=== PATIENT | male | born 1945 | race Caucasian/White ===

== ENCOUNTER → 2017-01-10 | Outpatient (CLI) | payer MEDICARE, BC ==
--- NOTE | 2017-01-10 18:48 | REP ---
PET/CT: History: Initial staging lung nodule seen on CT study [facility], December 20 2016. Report of this study describes a 3.1 x 2.3 x 1.3 cm right upper lobe consolidation, which was felt to have increased in size. Comparison: Comparison PET-CT study December 17, 2014 TECHNIQUE: 64 minutes following the intravenous injection of a 8.2 mCi dose of F-18 FDG, three-dimensional PET scintigraphy is acquired from the skull base to the proximal thighs. Triplanar noncontrast CT scanning is acquired through the same anatomic range for attenuation correction, and image registration with scan parameters optimized to minimize radiation exposure to the patient. PET scintigraphy and CT datasets were fused and displayed on a workstation with multiplanar and projection display capability. PET/CT Findings: The pleuroparenchymal opacity in the right base on recent CT study shows no hypermetabolic FDG accumulation. Maximum SUV value 1.9. This density appears unchanged when compared with the prior PET-CT imaging December 17, 2014. There is no abnormal hypermetabolic uptake within the chest. Calcific pleural plaquing is again noted unchanged. Vascular calcification is noted fairly extensively. In the abdomen and pelvis, normal FDG distribution to the liver, spleen, gastrointestinal and genitourinary tract is seen. No abnormal abdominal or pelvic hypermetabolic uptake is observed. Impression: Negative PET scintigraphy. Signed by Guilherme Rivera MD 01/10/2017 08:01 P
== END ==
LOC: M RAD 15:22
PROVIDERS: ATTEND Internal Medicine Pulmonary Disease
DX: R91.1 Solitary pulmonary nodule (principal)
CPT/HCPCS: 78815; A9552

== ENCOUNTER → 2017-07-31 | Outpatient (CLI) | payer MEDICARE, BC ==
--- NOTE | 2017-07-31 15:21 | REP ---
Bilateral carotid artery duplex ultrasound: Peak flow velocity analysis: RIGHT LEFT ICA. Peak flow velocity cm/sec 99 102 ICA Diastolic flow velocity cm/sec 20 27 ICA/CCA Ratio 0.95 0.88 ECA Peak flow velocity cm/sec 172 122 CCA Peak flow velocity cm/sec 105 116 There is moderate atheromatous plaque bilaterally extending from the common carotid arteries into the bulbs and internal carotid arteries and external carotid arteries bilaterally. Peak flow velocity in the right external carotid artery is elevated compatible with 50 - 69% stenosis. The peak flow velocities otherwise indicate less than 50% narrowing bilaterally. There is antegrade flow in the vertebral arteries bilaterally. Impression: There is no stenosis of the right on the left internal carotid arteries. Peak flow velocities indicate less than 50% narrowing bilaterally. There is 50 - 69% narrowing of the right external carotid artery. Signed by Obi Stallworth MD 07/31/2017 03:13 P
== END ==
LOC: M RAD 12:52
PROVIDERS: ATTEND Internal Medicine
DX: I65.29 Occlusion and stenosis of unspecified carotid artery (principal)

== ENCOUNTER → 2018-02-13 | Outpatient (CLI) | payer MEDICARE, BC ==
[2018-02-13 15:30] LABS: BASO # 0.2 10^3/uL (0.0-0.2); BASO % 1.8 % (0.0-1.0); EOS # 0.3 10^3/uL (0.0-0.50); EOS % 2.3 % (0.0-3.0); HEMATOCRIT 35.9 % (42.0-52.0); HEMOGLOBIN 12.1 g/dl (13.5-17.5); IMMATURE GRANULOCYTE % 0.4 % (0-3.0); LYMPH # 2.2 10^3/uL (1.5-4.5); LYMPH % 18.6 % (24.0-44.0); MEAN CORPUSCULAR HEMOGLOBIN 31.7 pg (27.0-33.0); MEAN CORPUSCULAR HGB CONC 33.7 g/dl (32.0-36.5); MONO # 1.3 10^3/uL (0.0-0.8); MONO % 11.2 % (0.0-5.0); NEUTROPHILS # 7.7 10^3/uL (1.8-7.7); NEUTROPHILS % 65.7 % (36.0-66.0); PLATELET COUNT, AUTOMATED 239 10^3/uL (150-450); RED BLOOD COUNT 3.82 10^6/uL (4.30-6.10); RED CELL DISTRIBUTION WIDTH 14.1 % (11.5-14.5); WHITE BLOOD COUNT 11.7 10^3/uL (4.0-10.0)
[2018-02-13 16:11] LABS: ANION GAP 7 MEQ/L (8-16); BLOOD UREA NITROGEN 16 MG/DL (7-18); CALCIUM LEVEL 8.9 MG/DL (8.8-10.2); CARBON DIOXIDE LEVEL 25 MEQ/L (21-32); CHLORIDE LEVEL 104 MEQ/L (98-107); CREATININE FOR GFR 1.06 MG/DL (0.70-1.30); GLOMERULAR FILTRATION RATE > 60.0 (>42); GLUCOSE, FASTING 83 MG/DL (70-100); POTASSIUM SERUM 4.4 MEQ/L (3.5-5.1); SODIUM LEVEL 136 MEQ/L (136-145)
== END ==
LOC: M LAB 14:59
DX: I70.213 Atherosclerosis of native arteries of extremities with intermittent claudication, bilateral legs (principal)
CPT/HCPCS: 80048

== ENCOUNTER → 2018-02-21 | Outpatient (CLI) | payer MEDICARE, BC ==
[~2018-02-21] MED LIST: HEPARIN 1,000 UNITS/ML 10ML VIAL (FOR RADIOLOGY& DIALYSIS ONLY) As Ordered; ISOVUE-300 61% 50ML VIAL (Q9967) As Ordered; LIDOCAINE 2% MDV 20 ML VIAL As Ordered; MIDAZOLAM INJ 2 MG/2 ML VIAL (J2250) As Ordered; fentaNYL 100 MCG/2 ML INJECTION (J3010) As Ordered
== END | disposition home or self-care (01) ==
LOC: M IRPRO 06:34
DX: I70.211 Atherosclerosis of native arteries of extremities with intermittent claudication, right leg (principal); M48.00 Spinal stenosis, site unspecified; F17.210 Nicotine dependence, cigarettes, uncomplicated; I95.81 Postprocedural hypotension
CPT/HCPCS: 36200

== ENCOUNTER 2018-03-29 07:27 | Inpatient (IN) | payer MEDICARE, BC ==
[2018-03-29] MEDS ORDERED: LIDOCAINE 1% MDV 20ML VIAL SQ (07:45)
[2018-03-29] MEDS: BUPIVACAINE HCL 0.5% 30 ML VIAL As Ordered (08:42)
[2018-03-29] MEDS: LIDOCAINE 1% SDV INJ 30 ML VIAL As Ordered (08:42)
[2018-03-29] MEDS: HEPARIN SOD (PORCINE) 5000 UNITS/ML VIAL As Ordered (08:43)
[2018-03-29] MEDS: CONRAY-60 60% 50ML VIAL (Q9961) As Ordered (09:01)
[2018-03-29] MEDS ORDERED: ALBUTEROL 90 MCG/ACT 8GM HFA INHALER INH (17:45)
[2018-03-30 06:30] LABS: BASO # 0.2 10^3/uL (0.0-0.2); BASO % 1.7 % (0.0-1.0); EOS # 0.5 10^3/uL (0.0-0.50); EOS % 5.1 % (0.0-3.0); HEMATOCRIT 36.8 % (42.0-52.0); HEMOGLOBIN 12.4 g/dl (13.5-17.5); IMMATURE GRANULOCYTE % 0.3 % (0-3.0); LYMPH # 1.8 10^3/uL (1.5-4.5); LYMPH % 18.5 % (24.0-44.0); MEAN CORPUSCULAR HEMOGLOBIN 31.5 pg (27.0-33.0); MEAN CORPUSCULAR HGB CONC 33.7 g/dl (32.0-36.5); MEAN CORPUSCULAR VOLUME 93.4 fl (80.0-96.0); MONO # 1.2 10^3/uL (0.0-0.8); MONO % 12.1 % (0.0-5.0); NEUTROPHILS # 6.2 10^3/uL (1.8-7.7); NEUTROPHILS % 62.3 % (36.0-66.0); PLATELET COUNT, AUTOMATED 236 10^3/uL (150-450); RED BLOOD COUNT 3.94 10^6/uL (4.30-6.10); RED CELL DISTRIBUTION WIDTH 13.9 % (11.5-14.5)
[2018-03-30 06:40] LABS: ANION GAP 6 MEQ/L (8-16); BLOOD UREA NITROGEN 8 MG/DL (7-18); CALCIUM LEVEL 9.2 MG/DL (8.8-10.2); CARBON DIOXIDE LEVEL 28 MEQ/L (21-32); CHLORIDE LEVEL 106 MEQ/L (98-107); CREATININE FOR GFR 0.94 MG/DL (0.70-1.30); GLOMERULAR FILTRATION RATE > 60.0 (>42); GLUCOSE, FASTING 100 MG/DL (70-100); SODIUM LEVEL 140 MEQ/L (136-145)
[2018-03-30] MEDS ORDERED: PROPOFOL 200 MG/20 ML VIAL As Ordered ×9 (07:57→10:30)
[2018-03-30] MEDS ORDERED: LIDOCAINE 2% INJ 100 MG/5 ML SDV (FOR ANES.) As Ordered (07:57)
[2018-03-30] MEDS ORDERED: fentaNYL 100 MCG/2 ML INJECTION (J3010) As Ordered (07:57)
[2018-03-30] MEDS ORDERED: MIDAZOLAM INJ 2 MG/2 ML VIAL (J2250) As Ordered (07:58)
[2018-03-30] MEDS: ISOVUE-300 61% 50ML VIAL (Q9967) As Ordered (08:19)
[2018-03-30] MEDS: ceFAZolin 2 GM/D5W 50 ML IV BAG (J0690 PER 500MG) As Ordered (08:43)
[2018-03-30] MEDS ORDERED: HEPARIN SOD (PORCINE) 5000 UNITS/ML VIAL As Ordered ×2 (08:49)
[2018-03-30] MEDS ORDERED: ePHEDrine SULFATE 25 MG/5 ML(5MG/ML) SYRINGE As Ordered (09:09)
[2018-03-30] MEDS: HEPARIN SOD (PORCINE) 5000 UNITS/ML VIAL As Ordered ×2 (10:01→10:35)
[2018-03-30] MEDS: THROMBIN SOLN 20,000 UNITS KIT As Ordered (10:22)
[2018-03-30] MEDS: BUPIVACAINE HCL 0.5% 30 ML VIAL As Ordered (11:30)
[2018-03-30] MEDS: LIDOCAINE 1% SDV INJ 30 ML VIAL As Ordered (11:30)
[2018-03-30] MEDS ORDERED: PERCOCET 5MG/325MG TAB PO (12:15)
[2018-03-30] MEDS ORDERED: ONDANSETRON 4MG/2ML VIAL (J2405) IV (12:15)
[2018-03-30] MEDS ORDERED: fentaNYL 100 MCG/2 ML INJECTION (J3010) IV (12:15)
[2018-03-30 12:45] LABS: HEMATOCRIT 33.4 % (42.0-52.0); MEAN CORPUSCULAR HEMOGLOBIN 31.3 pg (27.0-33.0); MEAN CORPUSCULAR HGB CONC 32.9 g/dl (32.0-36.5); MEAN CORPUSCULAR VOLUME 95.2 fl (80.0-96.0); PLATELET COUNT, AUTOMATED 219 10^3/uL (150-450); RED BLOOD COUNT 3.51 10^6/uL (4.30-6.10); WHITE BLOOD COUNT 14.5 10^3/uL (4.0-10.0)
[2018-03-30] MEDS: LR 1,000 ML IV ×2 (12:52)
[2018-03-30 13:05] LABS: ANION GAP 2 MEQ/L (8-16); BLOOD UREA NITROGEN 8 MG/DL (7-18); CALCIUM LEVEL 8.7 MG/DL (8.8-10.2); CARBON DIOXIDE LEVEL 29 MEQ/L (21-32); CHLORIDE LEVEL 106 MEQ/L (98-107); CREATININE FOR GFR 0.95 MG/DL (0.70-1.30); GLOMERULAR FILTRATION RATE > 60.0 (>42); GLUCOSE, FASTING 112 MG/DL (70-100); POTASSIUM SERUM 4.3 MEQ/L (3.5-5.1); SODIUM LEVEL 137 MEQ/L (136-145)
[2018-03-30] MEDS: ATORVASTATIN 20 MG TAB PO (13:36)
[2018-03-30] MEDS: NORCO, ANEXSIA 5/325MG TABLET (HYDROcodone/ACETAMINOPHEN) PO ×2 (17:46→23:54)
[2018-03-31 06:20] LABS: HEMATOCRIT 31.9 % (42.0-52.0); HEMOGLOBIN 10.6 g/dl (13.5-17.5); MEAN CORPUSCULAR HEMOGLOBIN 31.7 pg (27.0-33.0); MEAN CORPUSCULAR HGB CONC 33.2 g/dl (32.0-36.5); MEAN CORPUSCULAR VOLUME 95.5 fl (80.0-96.0); PLATELET COUNT, AUTOMATED 201 10^3/uL (150-450); RED BLOOD COUNT 3.34 10^6/uL (4.30-6.10); WHITE BLOOD COUNT 16.2 10^3/uL (4.0-10.0)
[2018-03-31 06:33] LABS: ANION GAP 6 MEQ/L (8-16); BLOOD UREA NITROGEN 9 MG/DL (7-18); CALCIUM LEVEL 8.7 MG/DL (8.8-10.2); CARBON DIOXIDE LEVEL 28 MEQ/L (21-32); CHLORIDE LEVEL 102 MEQ/L (98-107); CREATININE FOR GFR 1.06 MG/DL (0.70-1.30); GLOMERULAR FILTRATION RATE > 60.0 (>42); GLUCOSE, FASTING 112 MG/DL (70-100); SODIUM LEVEL 136 MEQ/L (136-145)
[2018-03-31] MEDS: ATORVASTATIN 20 MG TAB PO (08:00)
[2018-03-31] MEDS: NORCO, ANEXSIA 5/325MG TABLET (HYDROcodone/ACETAMINOPHEN) PO (19:40)
== END 2018-03-31 20:19 | disposition home or self-care (01) | DRG 271 ==
LOC: M OR 07:27 → M MSPAV 18:53
PROC: 04CH0ZZ Extirpation of Matter from Right External Iliac Artery, Open Approach (ICD-10-PCS; principal; 2018-03-30 08:18)
PROC: 04CK0ZZ Extirpation of Matter from Right Femoral Artery, Open Approach (ICD-10-PCS; 2018-03-30 08:18)
PROC: 04UK0JZ Supplement Right Femoral Artery with Synthetic Substitute, Open Approach (ICD-10-PCS; 2018-03-30 08:18)
DX: I70.213 Atherosclerosis of native arteries of extremities with intermittent claudication, bilateral legs (principal); I70.92 Chronic total occlusion of artery of the extremities; F17.210 Nicotine dependence, cigarettes, uncomplicated; I70.0 Atherosclerosis of aorta; I10 Essential (primary) hypertension; E78.00 Pure hypercholesterolemia, unspecified; J98.4 Other disorders of lung; Z79.899 Other long term (current) drug therapy

== ENCOUNTER → 2018-05-06 | Outpatient (CLI) | payer MEDICARE, BC ==
[~2018-05-06] MED LIST changes: -LIDOCAINE 2% MDV 20 ML VIAL As Ordered
== END | disposition home or self-care (01) ==
LOC: M IRPRO 07:46
DX: I70.213 Atherosclerosis of native arteries of extremities with intermittent claudication, bilateral legs (principal); I70.0 Atherosclerosis of aorta; Z72.0 Tobacco use
CPT/HCPCS: 37221

== ENCOUNTER → 2018-07-30 | Outpatient (CLI) | payer MEDICARE, BC | LOC: M RAD 11:09 | DX: I73.9 Peripheral vascular disease, unspecified (principal); Z95.828 Presence of other vascular implants and grafts | CPT/HCPCS: 93925 ==

== ENCOUNTER → 2019-01-30 | Outpatient (CLI) | payer MEDICARE, BC ==
[~2019-01-30] MED LIST changes: +ATOR40TA75 PO; +BREO1INH INH; -HEPARIN 1,000 UNITS/ML 10ML VIAL (FOR RADIOLOGY& DIALYSIS ONLY) As Ordered; +HYDR-3715 PO; +IRBE300T12 PO; -ISOVUE-300 61% 50ML VIAL (Q9967) As Ordered; -MIDAZOLAM INJ 2 MG/2 ML VIAL (J2250) As Ordered; +VENTAER IN; -fentaNYL 100 MCG/2 ML INJECTION (J3010) As Ordered
--- NOTE | 2019-01-30 13:50 | REP ---
Right lower extremity arterial Doppler ultrasound: The brachial flow velocity is 164 centimeters per second. The dorsalis pedis flow velocity is 124 cm/sec. The [employer] flow velocity is 138 cm/sec The BRET is 0.8. Peak Systolic Phasicity Velocity INTERMEDIATE FRAME TENDER 167.1 biphasic Profunda 17.6 monophasic SFA prox 153.5 biphasic SFA mid 130.4 biphasic SFA dist 175.3 biphasic Pop 59.7 biphasic RENATO prox 87.0 biphasic Tib/P tr 45.6 monophasic [employer] pr 46.7 monophasic [employer] dst 30.1 biphasic RENATO dst 26.4 monophasic There are bilateral iliac stents. The stents are patent with biphasic flow. There is moderate/severe plaque from the C F A to the feet bilaterally. Multiple areas of stenosis bilaterally. There is collateral flow at the distal femoral artery and popliteal artery. The peak flow velocity in the right brachial artery is 164 cm/sec and the left brachial artery is 124 centimeters per second. Because of this consider vertebral artery ultrasound to evaluate for subclavian steal. Left lower extremity arterial Doppler ultrasound: The brachial artery flow velocity is 124 cm/sec. The dorsalis penis flow velocity is 142 cm/sec. The [employer] flow velocity is 146 cm/sec. The BRET is 0.9. Peak Systolic Phasicity Velocity INTERMEDIATE FRAME TENDER 138.2 triphasic Profunda 139.2 biphasic SFA prox 193.8 biphasic SFA mid 79.4 biphasic SFA dist 64.9 biphasic Pop 14.1 biphasic RENATO prox 44.0 biphasic Tib/P tr 39.7 biphasic [employer] pr 19.7 biphasic [employer] dst 32.3 biphasic RENATO dst 21.3 biphasic There are bilateral iliac stents. The stents are patent with biphasic flow. There is moderate/severe plaque from the C F A to the feet bilaterally. Multiple areas of stenosis bilaterally. There is collateral flow at the distal femoral artery and popliteal artery. The peak flow velocity in the right brachial artery is 164 cm/sec and the left brachial artery is 124 centimeters per second. Because of this consider vertebral artery ultrasound to evaluate for subclavian steal. Electronically Signed by Obi Stallworth MD 01/30/2019 01:42 P
== END ==
LOC: M RAD 10:26
PROVIDERS: ATTEND Surgery Vascular Surgery
DX: I70.213 Atherosclerosis of native arteries of extremities with intermittent claudication, bilateral legs (principal); I77.1 Stricture of artery

== ENCOUNTER → 2019-02-25 | Outpatient (CLI) | payer MEDICARE, BC ==
--- NOTE | 2019-02-25 16:36 | REP ---
HISTORY: Carotid arterial disease. COMPARISON: 07/31/2017, which showed less than 50% stenosis of the internal carotid artery bilaterally. Once again, there is echogenic material seen in a patchy fashion along the carotid arterial akins some of which is calcified consistent with plaque formation. The appearance of this has increased compared to the prior exam. Right Left CCA systolic 102.9 cm/s 129.6 cm/s CCA diastolic 12.0 cm/s 27.4 cm/s ICA systolic 189.2 cm/s 111.3 cm/s ICA diastolic 22.8 cm/s 28.5 cm/s ICA/CCA ratio 1.8 0.9 Analysis of the spectral waveforms shows retrograde flow in the left vertebral artery and antegrade flow in the right vertebral artery. There is also significant spectral broadening of the internal carotid artery bilaterally. IMPRESSION: 1. Significant calcified and noncalcified atherosclerotic plaque as described above. This has increased from the prior exam. According to the NASCET consensus criteria, there is 50 to 69% stenosis of the right internal carotid artery and less than 50% stenosis in the left internal carotid artery, however, the plaque visualized in the left internal carotid artery appears more significant than less than 50%. 2. 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 Electronically Signed by Gabino Orosco DO 02/25/2019 04:48 P
== END ==
LOC: M RAD 13:30
PROVIDERS: ATTEND Physician Assistant
DX: I65.23 Occlusion and stenosis of bilateral carotid arteries (principal)

== ENCOUNTER → 2019-05-08 | Outpatient (CLI) | payer MEDICARE, BC ==
[~2019-05-08] MED LIST changes: +ADVI100T PO; +ECOT81TA5 PO
[2019-05-08 11:07] LABS: HEMATOCRIT 38.5 % (42.0-52.0); HEMOGLOBIN 12.8 g/dl (13.5-17.5); MEAN CORPUSCULAR HEMOGLOBIN 31.7 pg (27.0-33.0); MEAN CORPUSCULAR HGB CONC 33.2 g/dl (32.0-36.5); MEAN CORPUSCULAR VOLUME 95.3 fl (80.0-96.0); PLATELET COUNT, AUTOMATED 217 10^3/uL (150-450); RED BLOOD COUNT 4.04 10^6/uL (4.30-6.10); WHITE BLOOD COUNT 7.6 10^3/uL (4.0-10.0)
[2019-05-08 11:26] LABS: ERYTHROCYTE SEDIMENTATION RATE 12 mm/hr (0-20)
[2019-05-08 11:44] LABS: ALBUMIN 3.9 GM/DL (3.2-5.2); ALT/SGPT 20 U/L (12-78); BILIRUBIN,TOTAL 1.2 MG/DL (0.2-1.0); BLOOD UREA NITROGEN 10 MG/DL (7-18); CALCIUM LEVEL 9.1 MG/DL (8.8-10.2); CARBON DIOXIDE LEVEL 28 MEQ/L (21-32); CHLORIDE LEVEL 106 MEQ/L (98-107); CREATININE FOR GFR 1.03 MG/DL (0.70-1.30); GLOMERULAR FILTRATION RATE > 60.0 (>42); GLUCOSE, FASTING 88 MG/DL (70-100); POTASSIUM SERUM 4.4 MEQ/L (3.5-5.1); SODIUM LEVEL 139 MEQ/L (136-145); TOTAL PROTEIN 7.4 GM/DL (6.4-8.2)
--- NOTE | 2019-05-08 13:36 | REP ---
PA and lateral chest: Comparison is 11/22/2006. There is chronic hyperinflation, unchanged. There is a new ovoid density peripherally in the left lung maximally measuring up to 2.8 cm of uncertain significance. This could represent a true lung nodule or could represent calcific pleural plaque. Follow-up CT is recommended for further evaluation. Cardiac size is normal. The porita are chronically enlarged centrally, unchanged, compatible with pulmonary hypertension. The mediastinum is unremarkable. There is a cervical spine stabilization plate, unchanged. Impression: There is a new ovoid density in the left lung as described, nonspecific, calcific pleural plaque versus true lung nodule. Follow-up CT is recommended. Chronic hyperinflation. Electronically Signed by Obi Stallworth MD 05/08/2019 01:27 P
[2019-05-08 15:26] LABS: INR 1.03; PROTHROMBIN TIME 13.2 SECONDS (11.8-14.0)
--- NOTE | 2019-05-08 19:15 | ECGEPIP ---
[facility] Test Date: 2019-05-08 Pat Name: MURTAZA DE JESUS Department: Room: - Gender: Male Final Inspector Movement Assembly: [facility] : 1945 Requested By: Saniya Hubbard Order Number: [id number] Reading MD: Clifford Amador Measurements Intervals [place] Rate: 68 P: 54 IA: 364 QRS: 266 QRSD: 6 T: 89 QT: 306 QTc: 326 Interpretive Statements Normal sinus rhythm Within normal limits (Measured intervals are not correct) Electronically Signed on 05-08-2019 19:14:42 EDT by Clifford Amador
== END ==
LOC: M LAB 10:31
PROVIDERS: ATTEND Orthopaedic Surgery
DX: Z01.818 Encounter for other preprocedural examination (principal); M16.11 Unilateral primary osteoarthritis, right hip

== ENCOUNTER 2019-05-26 05:50 | Inpatient (IN) | payer MEDICARE, BC ==
--- NOTE | 2019-05-20 13:11 | HPE ---
DATE OF VISIT: 05/20/2019 DATE OF ANTICIPATED ADMISSION: 05/26/2019 ATTENDING PHYSICIAN: Dr. Tran CHIEF COMPLAINT: Right hip pain and stiffness. HISTORY: The patient is a 74-year-old male with progressively worsening right hip pain and stiffness. He has failed to improve with conservative measures. He continues to have symptoms with weightbearing activities and activities of daily living. He has consented for an elective right total hip arthroplasty for his continued symptoms. Medical optimization completed with KIKA Viera. CURRENT MEDICATIONS: - aspirin 81 mg daily - atorvastatin 40 mg daily - Breo Ellipta inhaler 1 inhalation daily ALLERGIES: There are NO KNOWN DRUG ALLERGIES. CHRONIC MEDICAL CONDITIONS: Subclavian artery stenosis, seborrheic keratosis, hyperlipidemia, peripheral vascular disease, lung neoplasm intervertebral disc degeneration, erectile dysfunction, chronic obstructive pulmonary disease, coronary artery stenosis, benign prostatic hypertrophy. SURGICAL HISTORY: Iliofemoral endarterectomy, ROUGH ROUNDER of the left common iliac artery with atherectomy and stent, open knee meniscectomy, cervical fusion, lumbar laminectomy with discectomy, left open carpal tunnel release. SOCIAL HISTORY: The patient is a former smoker and occasionally uses alcohol. He is , living at home with spouse. FAMILY HISTORY: Noncontributory. REVIEW OF SYSTEMS: The patient denies fevers, chills, nausea, vomiting, or diarrhea. Denies chest pain, shortness of breath, lightheadedness, dizziness or headaches, or abdominal pain. Denies any recent upper respiratory or urinary tract infection symptoms. He does continue to have right hip pain with weightbearing activities and activities of daily living. PHYSICAL EXAMINATION: General: Well-nourished, well-developed male in no apparent distress. He is alert, oriented and cooperative. Mood and affect are appropriate. Vital signs: Height 5 feet 11-1/2 inches, weight 182.8 pounds. Temperature 97.1, blood pressure 118/70, respirations 16, heart rate 62. Neck: Supple without lymphadenopathy. Heart: Regular rate and rhythm. Lungs: Clear to auscultation bilaterally. Abdomen: Soft, nontender to palpation. Bowel sounds are present. Musculoskeletal: Right hip exhibits no gross abnormalities. Skin is intact. There is tenderness to palpation along the groin and lateral hip. He does have decreased motion most pronounced in internal rotation and flexion. Strength of the right lower extremity is 5/5. Calf is soft, nontender to palpation with no palpable cords noted. He is neurovascularly intact distally. LABORATORY DATA: Chest x-ray: There is a new oval density in the left lung, which is nonspecific calcific pleural plaque versus a true lung nodule. Chronic hyperinflation. Followup CT recommended. Right hip x-ray notable for end-stage degenerative changes. EKG: Normal sinus rhythm. Complete blood count: ESR 12, WBC is 7.6, hemoglobin decreased at 12.8, hematocrit decreased at 38.5, platelets 217. Comprehensive metabolic profile: Fasting glucose 88, BUN 10, creatinine for GFR 1.03, GFR greater than 60, sodium 139, potassium 4.4, chloride 106, carbon dioxide 28, anion gap decreased at 5, calcium 9.1, AST 14, ALT 20, alkaline phosphatase 83, total bilirubin elevated at 1.2, total protein 7.4, albumin 3.9, albumin-globulin ratio 1.11. Prothrombin time 13.2, INR 1.03. IMPRESSION/PLAN: 1. Right hip osteoarthritis with x-rays notable for end-stage degenerative changes. The patient consented for an elective right total hip arthroplasty with Dr. Tran for his continued symptoms. Medical optimization completed with ANTONIO Viera. 2. Concern for left lung nodule. The patient's patient services specialist was contacted per his primary foster care case manager. Lesion was not new and there are no concerns with this current x-ray. The patient is medically optimized for surgery. [facility]
[~2019-05-26] VITALS: Ht 188 cm; Wt 84.4 kg
[2019-05-26] VITALS (22 sets, daily range): BP systolic 80–183; BP diastolic 47–86
[2019-05-26] MEDS ORDERED: LR 1,000 ML IV ONE (06:00)
[2019-05-26] MEDS ORDERED: ACETAMINOPHEN 500 MG TAB PO ONE (06:00)
[2019-05-26] MEDS ORDERED: ceFAZolin 1GM INJ (J0690 PER 500MG) As Ordered ONE ×2 (07:14→07:21)
[2019-05-26] MEDS ORDERED: LIDOCAINE 2% INJ 100 MG/5 ML SDV (FOR ANES.) As Ordered ONE (07:52)
[2019-05-26] MEDS ORDERED: PROPOFOL 200 MG/20 ML VIAL As Ordered ONE (07:52)
[2019-05-26] MEDS ORDERED: MIDAZOLAM INJ 2 MG/2 ML VIAL (J2250) As Ordered ONE (07:52)
[2019-05-26] MEDS ORDERED: fentaNYL 100 MCG/2 ML INJECTION (J3010) As Ordered ONE (07:52)
[2019-05-26] MEDS ORDERED: ePHEDrine SULFATE 25 MG/5 ML(5MG/ML) SYRINGE As Ordered ONE ×3 (07:52→08:48)
[2019-05-26] MEDS ORDERED: PHENYLephrine HCL 500 MCG/5 ML (100MCG/ML) SYRINGE (J2370) As Ordered ONE (08:28)
[2019-05-26] MEDS ORDERED: DESFLURANE 240 ML INHALANT As Ordered ONE (08:29)
[2019-05-26] MEDS ORDERED: SEVOFLURANE INHAL SOLN 250 ML BTL As Ordered ONE (08:30)
[2019-05-26] MEDS ORDERED: ACETAMINOPHEN 1000MG 100ML IV BTL (OFIRMEV) (J0131 PER 10MG) As Ordered ONE (08:50)
[2019-05-26] MEDS ORDERED: HYDROMORPHONE HCL 0.5 MG/ 0.5 ML SYRINGE (J1170 PER 1) IV PRN ×2 (09:45)
[2019-05-26] MEDS ORDERED: PERCOCET 5MG/325MG TAB PO PRN ×2 (09:45→13:30)
[2019-05-26] MEDS ORDERED: fentaNYL 100 MCG/2 ML INJECTION (J3010) IV PRN (09:45)
[2019-05-26] MEDS ORDERED: ONDANSETRON 4MG/2ML VIAL (J2405) IV PRN (09:45)
[2019-05-26] MEDS ORDERED: METOCLOPRAMIDE INJ 10MG/2ML VIAL (J2765) IV PRN (09:45)
[2019-05-26] MEDS ORDERED: LR 1,000 ML IV SCH (09:45)
--- NOTE | 2019-05-26 10:24 | RO ---
DATE OF PROCEDURE: 05/26/2019 PREOPERATIVE DIAGNOSIS: Right hip degenerative arthritis. POSTOPERATIVE DIAGNOSIS: Right hip degenerative arthritis. PROCEDURE: Right total hip arthroplasty using a size 8 standard offset [place] stem with a 1.5 neck and a 36 mm ball with a 56 mm Gription Sector cup with a neutral liner. Prosthesis made by [employer]. SURGEON: Saniya Tran MD TELEPHOTO INSTALLER: Ms. Noni Sanchez ANESTHESIA: Spinal. COMPLICATIONS: None. ESTIMATED BLOOD LOSS: 200 mL. SPECIMENS: Femoral head. FINDINGS: Trochanteric attachment of the abductors were chronically torn consistent with chronic trochanteric bursitis. He had dopplerable pulses before the start of the procedure. DESCRIPTION OF PROCEDURE: Antibiotics were given intravenously preoperatively, and then a successful spinal anesthetic was induced, and he was placed in a lateral decubitus position. The right hip upper most. A [place] hip positioner was utilized. Down leg well padded, especially the perineal nerve and axillary roll utilized. Doppler showed that he had a dopplerable dorsalis pedis pulse. The right hip area was then carefully prepped and draped in the usual sterile fashion. After appropriate time-out, a longitudinal incision was made for a direct anterolateral approach to the hip. Bovie cautery was used to coagulate crossing vessels down to the tensor fascia, which was then divided underlying distally. There was fluid and noted that the abductors were chronically torn from the greater trochanter. It was basically bare bone. Carefully split the gluteus medius, then the gluteus minimus proximally and dissected the remaining abductors from the proximal portion of the femur distally as we actually rotated and then eventually dislocated the hip. The pyriformis fossa was identified. A starter reamer placed, followed by the canal-finding reamer, then the lateralizing reamer. Then, we reamed up to a size 8, and then the femoral neck osteotomy was performed using the template, and then we broached up to a 8. Calcar planer was utilized. We then exposed the acetabulum, performed a labral excision 360 degrees, and then began reaming with a 50 mm reamer and advancing 1 mm increments to 55. The trial fit nicely. 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 He had some deficiency of the posterolateral wall of the acetabulum, but there was good fit. Thus, I used the real 56 Gription cup, but I elected to use the Sector cup in case glue fixation was needed. After copiously pulsatile lavage irrigating out the acetabulum, the cup was placed using the extramedullary alignment jig to help set our abduction and version, and the cup fit very snugly. Screws were not felt to be needed. We irrigated out the acetabular shell and then placed the polyethylene liner and made sure it was seated appropriately. We then copiously irrigated out the femoral canal, place the #8 broach, trialed with the 1.5 x 36 mm trial standard offset, and the hip was very stable to flexion internal rotation and extension external rotation and minimal soft tissue telescoping. Thus, I felt this was the appropriate size. Thus, we removed the trials, irrigated out the canal once again, placed the real #8 stem, dried the trunnion, and then placed the 36 mm ball, reduced the hip after irrigating copiously, then irrigated again, then carefully tried to repair the abductors back anatomically. Many sutures were placed through the bone to help secure the abductors back to the greater trochanter proximally. Irrigated between layers. Then closed the tensor fascia with #1 polydioxanone suture (PDS) suture and then a running #1 Stratafix. Irrigating between layers again and closed the deep subdermal tissues with interrupted 2-0 PDS sutures. The skin was closed with francis, covered by an Optifoam dry sterile bulky dressing. He was then turned supine and then transferred to the recovery room in stable condition. There were no intraoperative complications. Noni Daniel was critical to the success of this difficult procedure by helping to prepare the patient, position the patient, help with appropriate soft tissue retraction, help to dislocate and relocate the hip several times throughout the operation, help perform the operation smoothly and efficiently, as well as help closing the wound, amongst many other tasks.
--- NOTE | 2019-05-26 10:34 | REP ---
RIGHT HIP, TWO VIEWS: Two views of the right hip are performed. Total hip prosthesis is in good position. The structures are well aligned. Scattered vascular calcifications are noted. There is a right iliac stent. Metallic skin francis are seen laterally. Electronically Signed by Obi Kebede MD 05/28/2019 07:41 A
[2019-05-26] MEDS ORDERED: ACETAMINOPHEN TAB 650MG DOSE (2X325MG) PO PRN (12:30)
[2019-05-26] MEDS ORDERED: FLEET ENEMA PR PRN (12:30)
[2019-05-26] MEDS: PERCOCET 5MG/325MG TAB PO PRN ×3 (13:39→22:06)
[2019-05-26] MEDS ORDERED: NS 1,000 ML IV ONE ×2 (15:00→15:30)
[2019-05-26 15:16] LABS: BASO # 0.2 10^3/uL (0.0-0.2); BASO % 1.4 % (0.0-1.0); EOS # 0.3 10^3/uL (0.0-0.50); EOS % 1.7 % (0.0-3.0); HEMATOCRIT 32.3 % (42.0-52.0); HEMOGLOBIN 10.7 g/dl (13.5-17.5); LYMPH % 12.4 % (24.0-44.0); MEAN CORPUSCULAR HEMOGLOBIN 30.9 pg (27.0-33.0); MEAN CORPUSCULAR HGB CONC 33.1 g/dl (32.0-36.5); MEAN CORPUSCULAR VOLUME 93.4 fl (80.0-96.0); MONO # 1.4 10^3/uL (0.0-0.8); MONO % 8.7 % (0.0-5.0); NEUTROPHILS % 75.2 % (36.0-66.0); PLATELET COUNT, AUTOMATED 217 10^3/uL (150-450); RED BLOOD COUNT 3.46 10^6/uL (4.30-6.10)
[2019-05-26 15:33] LABS: ALBUMIN 3.3 GM/DL (3.2-5.2); ALT/SGPT 19 U/L (12-78); BILIRUBIN,TOTAL 0.9 MG/DL (0.2-1.0); BLOOD UREA NITROGEN 10 MG/DL (7-18); CALCIUM LEVEL 8.5 MG/DL (8.8-10.2); CARBON DIOXIDE LEVEL 27 MEQ/L (21-32); CHLORIDE LEVEL 107 MEQ/L (98-107); GLOMERULAR FILTRATION RATE > 60.0 (>42); GLUCOSE, FASTING 105 MG/DL (70-100); NT-PRO BNP 344 PG/ML (<125); POTASSIUM SERUM 3.8 MEQ/L (3.5-5.1); SODIUM LEVEL 139 MEQ/L (136-145); TOTAL PROTEIN 5.9 GM/DL (6.4-8.2); TROPONIN I < 0.02 NG/ML (< 0.10)
--- NOTE | 2019-05-26 18:30 | REP ---
REASON: Syncope. COMPARISON: 05/08/2019 The technique utilized in obtaining the radiograph has magnified the cardiac silhouette and accentuated the interstitial markings. Again no significant change compared to the prior exam other than technique. There are some chronic lung field changes status quo. There are no acute patchy parenchymal opacities pr pleural effusions. The pleural angles are again seen to be sharp. The heart is not enlarged. The osseous structures are stable. IMPRESSION:No change from the prior exam, other than technique. There is no evidence of acute disease. The density seen previously in the left lung on the latest prior is unchanged. Electronically Signed by Gabino Orosco DO 05/26/2019 07:56 P
[2019-05-26] MEDS ORDERED: NS 1,000 ML IV SCH (19:00)
--- NOTE | 2019-05-26 19:31 | CR.PDOC ---
General Date of Consultation: May 26, 2019 Consultation REASON FOR CONSULTATION/CHIEF COMPLAINT: management of comorbidities, near syncopal episode HISTORY OF PRESENT ILLNESS: 74m with hx of copd, bph, hld, pad, stable lung nodule who was admitted for an elective rt hip arthroplasty. After the procedure pt was doing well, drinking, although complaining of some incision site pain. he was given two percocets for the pain. He then had to void and upon standing became very lightheaded, pale, and clammy. He was noted to be bradycardic to 30s on the pulseox and hypotensive to the 80s. He was helped back into bed by nursing staff, put in [place] and given fluids with relief of symptoms and normalization of vitals. a rapid response was called during this episode. ALLERGIES: Please see below. HOME MEDICATIONS: Please see below. REVIEW OF SYSTEMS: a full ROS was performed and significant only for lightheadedness, sweating, and urinary hesitation PHYSICAL EXAMINATION: VITAL SIGNS: Please see below. GENERAL APPEARANCE: Alert, pale, diaphoretic, although in no apparent distress HEENT: normocephalic, atraumatic, PERRL, EOMI RESPIRATORY: clear to auscultation with good air movement CARDIOVASCULAR: s1s2, RRR, no MRG ABDOMEN: soft nontender nondistended EXTREMITIES: no edema NEUROLOGICAL: no focal deficts PSYCHIATRIC: A&Ox3, nl mood and affect LABORATORY DATA: Please see below. ASSESSMENT/PLAN: 74m with elective hip arthroplasty complicated by episode of near syncope near syncope symptoms have resolved pt has orthostatic hypotension likely dry will continue a fluid challenge as tolerated EKG unchanged will repeat troponin tonight although doubt cardiac event may be related to urinary retention or a vagal response pt moved to telemetry for closer monitoring BPH having some difficulty voiding had up to 1200ccs in bladder although was able to eventually void monitor urine output starting flomax copd continue symbicort and prn albuterol hld continue statin Vital Signs/I&O Vital Signs Date Time Temp Pulse Resp B/P (MAP) Pulse Ox O2 Delivery O2 Flow Rate FiO2 05/26/19 18:26 20 05/26/19 18:00 73 115/64 (81) 98 05/26/19 16:00 96.7 Laboratory Data Labs 24H Laboratory Tests 2 05/26/19 14:37: Bedside Glucose (Misc Panel) 105 05/26/19 14:55: Immature Granulocyte % (Auto) 0.6, White Blood Count 16.0H, Red Blood Count 3.46L, Hemoglobin 10.7L, Hematocrit 32.3L, Mean Corpuscular Volume 93.4, Mean Corpuscular Hemoglobin 30.9, Mean Corpuscular Hemoglobin Concent 33.1, Red Cell Distribution Width 14.7H, Platelet Count 217, Neutrophils (%) (Auto) 75.2H, Lymphocytes (%) (Auto) 12.4L, Monocytes (%) (Auto) 8.7H, Eosinophils (%) (Auto) 1.7, Basophils (%) (Auto) 1.4H, Neutrophils # (Auto) 12.0H, Lymphocytes # (Auto) 2.0, Monocytes # (Auto) 1.4H, Eosinophils # (Auto) 0.3, Basophils # (Auto) 0.2, Nucleated Red Blood Cells % (auto) 0.0, Lactic Acid Level 2.0 05/26/19 14:56: Anion Gap 5L, Glomerular Filtration Rate > 60.0, Blood Urea Nitrogen 10, Creat inine 1.10, Sodium Level 139, Potassium Level 3.8, Chloride Level 107, Carbon Dioxide Level 27, Calcium Level 8.5L, Aspartate Amino Transf (AST/SGOT) 18, Alanine Aminotransferase (ALT/SGPT) 19, Alkaline Phosphatase 65, Total Bilirubin 0.9, Total Protein 5.9L, Albumin 3.3, Troponin I < 0.02, DV-Rfc-L-Type Natriuretic Peptide 344H, Albumin/Globulin Ratio 1.27 CBC/BMP Laboratory Tests 05/26/19 14:55 Red Blood Count 3.46 L, Mean Corpuscular Volume 93.4, Mean Corpuscular Hemoglob in 30.9, Mean Corpuscular Hemoglobin Concent 33.1, Red Cell Distribution Width 14.7 H, Neutrophils (%) (Auto) 75.2 H, Lymphocytes (%) (Auto) 12.4 L, Monocytes (%) (Auto) 8.7 H, Eosinophils (%) (Auto) 1.7, Basophils (%) (Auto) 1.4 H, Neutrophils # (Auto) 12.0 H, Lymphocytes # (Auto) 2.0, Monocytes # (Auto) 1.4 H, Eosinophils # (Auto) 0.3, Basophils # (Auto) 0.2 05/26/19 14:56 Calcium Level 8.5 L, Aspartate Amino Transf (AST/SGOT) 18, Alanine Aminotransferase (ALT/SGPT) 19, Alkaline Phosphatase 65, Total Bilirubin 0.9, Total Protein 5.9 L, Albumin 3.3 Microbiology Microbiology 05/26/19 Blood Culture, Received Pending Allergies Coded Allergies: No Known Allergies (Verified , 05/26/19) Home Medications Scheduled Aspirin (Ecotrin) 81 Mg Tablet.dr, 81 MG PO DAILY, (Reported) Atorvastatin Calcium (Atorvastatin Calcium) 40 Mg Tab, 40 MG PO DAILY, (Reported) Fluticasone/Vilanterol (Breo Ellipta 100-25 Mcg INH) 1 Inh Inh, 1 PUFF INH DAILY, (Reported) Scheduled PRN Albuterol Sulfate (Ventolin Hfa) 108 Mcg/Act Aer, 108 MCG IN PRN PRN for WHEEZING, (Reported) Ibuprofen (Advil) 100 Mg Tablet, 400 MG PO PRN PRN for PAIN OR FEVER, (Reported) DAYANARA CADE MD May 26, 2019 19:31
[2019-05-26] MEDS: ALBUTEROL SULFATE 2.5 MG/0.5 ML INH NEB SOLN NEB SCH (20:00)
[2019-05-26] MEDS: ATORVASTATIN 20 MG TAB PO SCH (20:49)
[2019-05-26] MEDS: TAMSULOSIN 0.4 MG CAP PO SCH (20:49)
[2019-05-26] MEDS: SYMBICORT 80/4.5MCG INHALER 6GM INH SCH (21:03)
--- NOTE | 2019-05-26 21:07 | ECGEPIP ---
[facility] Test Date: 2019-05-26 Pat Name: MURTAZA DE JESUS Department: Room: [place] [address] Gender: Male Order Packer: LOIS : 1945 Requested By: KERON WALKER Order Number: [id number] Reading MD: Abhijit Hu Measurements Intervals [place] Rate: 59 P: 53 ME: 144 QRS: 63 QRSD: 97 T: 58 QT: 404 QTc: 402 Interpretive Statements Sinus bradycardia Early repolarization No significant change when compared to prior tracing of 05/08/2019 Electronically Signed on 05-26-2019 21:06:55 EDT by Abhijit Hu
[2019-05-27] VITALS (12 sets, daily range): BP systolic 95–126; BP diastolic 52–64
[2019-05-27] MEDS: ALBUTEROL SULFATE 2.5 MG/0.5 ML INH NEB SOLN NEB SCH ×4 (02:00→20:00)
[2019-05-27] MEDS: PERCOCET 5MG/325MG TAB PO PRN ×4 (04:40→20:27)
[2019-05-27 05:04] LABS: HEMATOCRIT 31.9 % (42.0-52.0); HEMOGLOBIN 10.4 g/dl (13.5-17.5); MEAN CORPUSCULAR HEMOGLOBIN 31.4 pg (27.0-33.0); MEAN CORPUSCULAR HGB CONC 32.6 g/dl (32.0-36.5); MEAN CORPUSCULAR VOLUME 96.4 fl (80.0-96.0); PLATELET COUNT, AUTOMATED 168 10^3/uL (150-450); RED BLOOD COUNT 3.31 10^6/uL (4.30-6.10); WHITE BLOOD COUNT 11.4 10^3/uL (4.0-10.0)
[2019-05-27 05:21] LABS: BLOOD UREA NITROGEN 9 MG/DL (7-18); CALCIUM LEVEL 8.7 MG/DL (8.8-10.2); CARBON DIOXIDE LEVEL 28 MEQ/L (21-32); CHLORIDE LEVEL 105 MEQ/L (98-107); CREATININE FOR GFR 0.97 MG/DL (0.70-1.30); GLOMERULAR FILTRATION RATE > 60.0 (>42); GLUCOSE, FASTING 109 MG/DL (70-100); POTASSIUM SERUM 4.2 MEQ/L (3.5-5.1); SODIUM LEVEL 138 MEQ/L (136-145)
[2019-05-27] MEDS: MOM 30ML SUSPENSION UDC PO SCH (08:34)
[2019-05-27] MEDS: ASPIRIN 81 MG ENTERIC TAB PO SCH (08:34)
[2019-05-27] MEDS: MIRALAX *UNIT DOSE* 17GM PACKET PO SCH (08:34)
--- NOTE | 2019-05-27 08:47 | IPNPDOC ---
Text Note Date of Service The patient was seen on 05/27/19. NOTE Subjective: Patient seen and examined at bedside. No further episodes of dizziness. No medical complaints - denies chest pain, shortness of breath, headaches, changes in vision, abdominal pain, N/V/D. Objective: General: NAD, lying comfortably in bed HEENT: NC/AT, EOMI, PERRL Lungs: CTA B/L Heart: +S1S2, RRR Abd: soft, NT, +BS Ext: no edema Psych: AAOx3 A/P: 74 yo male POD #1 hip surgery, transferred to ICU, for post-op hypotension, bradycardia and oliguria. #post-op symptoms - likely a/e from anaesthesia - no further symptoms - will check orthostatics, likely transfer back to med surg today - no events noted on telemetry, no EKG changes, no troponinemia #oliguria - resolved #BPH - states his PCP has reported enlarged prostate, but denies previous symptoms - flomax was started #copd continue symbicort and prn albuterol #hld continue statin #DVT prophylaxis - as per ortho DISPO: likely transfer to med surg today VS,Fishbone, I+O VS, Fishbone, I+O Laboratory Tests 05/26/19 14:55 Red Blood Count 3.46 L, Mean Corpuscular Volume 93.4, Mean Corpuscular Hemoglobin 30.9, Mean Corpuscular Hemoglobin Concent 33.1, Red Cell Distribution Width 14.7 H, Neutrophils (%) (Auto) 75.2 H, Lymphocytes (%) (Auto) 12.4 L, [place] cytes (%) (Auto) 8.7 H, Eosinophils (%) (Auto) 1.7, Basophils (%) (Auto) 1.4 H, Neutrophils # (Auto) 12.0 H, Lymphocytes # (Auto) 2.0, Monocytes # (Auto) 1.4 H, Eosinophils # (Auto) 0.3, Basophils # (Auto) 0.2 05/26/19 14:56 Calcium Level 8.5 L, Aspartate Amino Transf (AST/SGOT) 18, Alanine Aminotransferase (ALT/SGPT) 19, Alkaline Phosphatase 65, Total Bilirubin 0.9, Total Protein 5.9 L, Albumin 3.3 05/27/19 04:35 Red Blood Count 3.31 L, Mean Corpuscular Volume 96.4 H, Mean Corpuscular Hemoglobin 31.4, Mean Corpuscular Hemoglobin Concent 32.6, Red Cell Distribution Width 14.9 H, Calcium Level 8.7 L Vital Signs Date Time Temp Pulse Resp B/P (MAP) Pulse Ox O2 Delivery O2 Flow Rate FiO2 05/27/19 08:34 20 97 05/27/19 05:00 76 101/54 (70) 05/27/19 04:00 98.5 I&O- Last 24 Hours up to 6 AM 05/27/19 05:59 Intake Total 3995 ml Output Total 1400 ml Balance 2595 ml ANA VEGA MD May 27, 2019 08:47
[2019-05-27] MEDS: SYMBICORT 80/4.5MCG INHALER 6GM INH SCH ×2 (09:02→20:45)
[2019-05-27] MEDS: RIVAROXABAN 10 MG TAB (XARELTO) PO SCH (17:10)
[2019-05-27] MEDS: TAMSULOSIN 0.4 MG CAP PO SCH (20:25)
[2019-05-27] MEDS: ATORVASTATIN 20 MG TAB PO SCH (20:26)
[2019-05-28] MEDS: ALBUTEROL SULFATE 2.5 MG/0.5 ML INH NEB SOLN NEB SCH ×5 (02:00→19:45)
[2019-05-28] MEDS: PERCOCET 5MG/325MG TAB PO PRN ×5 (02:06→21:56)
[2019-05-28 04:00] VITALS: BP 127/59
[2019-05-28 05:19] LABS: HEMATOCRIT 30.5 % (42.0-52.0); HEMOGLOBIN 9.9 g/dl (13.5-17.5); MEAN CORPUSCULAR HEMOGLOBIN 31.3 pg (27.0-33.0); MEAN CORPUSCULAR HGB CONC 32.5 g/dl (32.0-36.5); MEAN CORPUSCULAR VOLUME 96.5 fl (80.0-96.0); PLATELET COUNT, AUTOMATED 176 10^3/uL (150-450); RED BLOOD COUNT 3.16 10^6/uL (4.30-6.10); WHITE BLOOD COUNT 14.2 10^3/uL (4.0-10.0)
[2019-05-28 05:34] LABS: BLOOD UREA NITROGEN 11 MG/DL (7-18); CARBON DIOXIDE LEVEL 26 MEQ/L (21-32); CHLORIDE LEVEL 104 MEQ/L (98-107); CREATININE FOR GFR 0.98 MG/DL (0.70-1.30); GLOMERULAR FILTRATION RATE > 60.0 (>42); GLUCOSE, FASTING 104 MG/DL (70-100); POTASSIUM SERUM 4.5 MEQ/L (3.5-5.1); SODIUM LEVEL 135 MEQ/L (136-145)
[2019-05-28] MEDS ORDERED: PERC5TAB12 PO (07:05)
[2019-05-28] MEDS ORDERED: XARE10TA PO (07:05)
[2019-05-28 07:22] VITALS: BP 119/56
[2019-05-28] MEDS: MOM 30ML SUSPENSION UDC PO SCH (08:26)
[2019-05-28] MEDS: ASPIRIN 81 MG ENTERIC TAB PO SCH (08:26)
[2019-05-28] MEDS: MIRALAX *UNIT DOSE* 17GM PACKET PO SCH (08:26)
[2019-05-28] MEDS: SYMBICORT 80/4.5MCG INHALER 6GM INH SCH ×2 (09:14→19:43)
[2019-05-28 11:28] VITALS: BP 114/64
--- NOTE | 2019-05-28 12:53 | IPNPDOC ---
Text Note Date of Service The patient was seen on 05/28/19. NOTE Subjective: Patient seen and examined at bedside. No further episodes of dizziness. No medical complaints - denies chest pain, shortness of breath, headaches, changes in vision, abdominal pain, N/V/D. Objective: General: NAD, lying comfortably in bed HEENT: NC/AT, EOMI, PERRL Lungs: CTA B/L Heart: +S1S2, RRR Abd: soft, NT, +BS Ext: no edema Psych: AAOx3 A/P: 74 yo male POD #2 hip surgery, transferred to ICU POD#1, for post-op hypotension, bradycardia and oliguria. #post-op symptoms - resolved - likely a/e from anaesthesia - no further symptoms - transferred to med/surg #oliguria - resolved #BPH - states his PCP has reported enlarged prostate, but denies previous symptoms - flomax was started #copd continue symbicort and prn albuterol #hld continue statin #DVT prophylaxis - as per ortho DISPO: as per primary team VSWolfgang, I+O VS, Wolfgang I+O Laboratory Tests 05/28/19 04:57 Red Blood Count 3.16 L, Mean Corpuscular Volume 96.5 H, Mean Corpuscular Hemoglobin 31.3, Mean Corpuscular Hemoglobin Concent 32.5, Red Cell Distribution Width 15.0 H, Calcium Level 9.0 Vital Signs Date Time Temp Pulse Resp B/P (MAP) Pulse Ox O2 Delivery O2 Flow Rate FiO2 05/28/19 11:22 18 05/28/19 10:52 98 05/28/19 07:22 100.0 75 119/56 (77) I&O- Last 24 Hours up to 6 AM 05/28/19 06:00 Intake Total 1910 ml Output Total 1325 ml Balance 585 ml ANA VEGA MD May 28, 2019 12:53
[2019-05-28 15:44] VITALS: BP 106/59
[2019-05-28] MEDS: RIVAROXABAN 10 MG TAB (XARELTO) PO SCH (17:10)
[2019-05-28] MEDS: TAMSULOSIN 0.4 MG CAP PO SCH (20:11)
[2019-05-28] MEDS: ATORVASTATIN 20 MG TAB PO SCH (20:11)
[2019-05-28 22:00] VITALS: BP 104/71
[2019-05-29 02:00] VITALS: BP 109/66
[2019-05-29] MEDS: ALBUTEROL SULFATE 2.5 MG/0.5 ML INH NEB SOLN NEB SCH ×2 (02:00→07:23)
[2019-05-29] MEDS: PERCOCET 5MG/325MG TAB PO PRN (04:53)
[2019-05-29 06:00] VITALS: BP 103/65
[2019-05-29 06:42] LABS: HEMATOCRIT 27.3 % (42.0-52.0); HEMOGLOBIN 8.9 g/dl (13.5-17.5); MEAN CORPUSCULAR HEMOGLOBIN 31.1 pg (27.0-33.0); MEAN CORPUSCULAR HGB CONC 32.6 g/dl (32.0-36.5); MEAN CORPUSCULAR VOLUME 95.5 fl (80.0-96.0); PLATELET COUNT, AUTOMATED 182 10^3/uL (150-450); RED BLOOD COUNT 2.86 10^6/uL (4.30-6.10); WHITE BLOOD COUNT 12.7 10^3/uL (4.0-10.0)
[2019-05-29 06:59] LABS: BLOOD UREA NITROGEN 10 MG/DL (7-18); CALCIUM LEVEL 8.6 MG/DL (8.8-10.2); CARBON DIOXIDE LEVEL 27 MEQ/L (21-32); CHLORIDE LEVEL 102 MEQ/L (98-107); CREATININE FOR GFR 0.95 MG/DL (0.70-1.30); GLOMERULAR FILTRATION RATE > 60.0 (>42); GLUCOSE, FASTING 107 MG/DL (70-100); POTASSIUM SERUM 4.1 MEQ/L (3.5-5.1); SODIUM LEVEL 131 MEQ/L (136-145)
[2019-05-29] MEDS: SYMBICORT 80/4.5MCG INHALER 6GM INH SCH (07:23)
[2019-05-29] MEDS: MOM 30ML SUSPENSION UDC PO SCH (08:00)
[2019-05-29] MEDS: MIRALAX *UNIT DOSE* 17GM PACKET PO SCH (08:00)
[2019-05-29] MEDS: ASPIRIN 81 MG ENTERIC TAB PO SCH (08:00)
== END 2019-05-29 11:25 | disposition home or self-care (01) | DRG 470 ==
LOC: M OR 05:50 → M MS5PR 12:05 → M ICU 14:55 → M MS5PR 05-28 11:19
PROVIDERS: ADMIT Orthopaedic Surgery; ATTEND Orthopaedic Surgery
PROC: 0SR902Z Replacement of Right Hip Joint with Metal on Polyethylene Synthetic Substitute, Open Approach (ICD-10-PCS; principal; 2019-05-26 07:30)
DX: M16.11 Unilateral primary osteoarthritis, right hip (principal); L82.1 Other seborrheic keratosis; E78.5 Hyperlipidemia, unspecified; I73.9 Peripheral vascular disease, unspecified; R91.1 Solitary pulmonary nodule; N52.9 Male erectile dysfunction, unspecified; J44.9 Chronic obstructive pulmonary disease, unspecified; M70.61 Trochanteric bursitis, right hip; R34 Anuria and oliguria; I95.1 Orthostatic hypotension; I25.10 Atherosclerotic heart disease of native coronary artery without angina pectoris; N40.1 Benign prostatic hyperplasia with lower urinary tract symptoms; Z98.1 Arthrodesis status; Z87.891 Personal history of nicotine dependence; Z79.82 Long term (current) use of aspirin; Z79.899 Other long term (current) drug therapy; Z95.820 Peripheral vascular angioplasty status with implants and grafts

== ENCOUNTER → 2019-08-04 | Outpatient (CLI) | payer MEDICARE, BC ==
[~2019-08-04] MED LIST changes: +PERC5TAB12 PO; +XARE10TA PO
--- NOTE | 2019-08-04 16:49 | REP ---
Duplex carotid sonography: History: Bilateral leg claudication. Occlusion and stenosis of the carotid arteries. Comparison carotid sonography February 25, 2019. This prior study showed 50-69% stenosis of the right internal carotid artery and less than 50% stenosis of the left internal carotid artery with subclavian steal reversal of flow in the left vertebral artery. Findings: The left vertebral artery could not be seen today. Antegrade flow was observed in the right vertebral artery. Right carotid: The right common carotid artery shows mild mixed plaquing. There is moderate mixed plaquing in the bulb and proximal ICA on the right side. Color flow and spectral Doppler interrogation demonstrate the elevated systolic velocity in the ICA. Velocity chart right carotid: Right CCA PSV 120 cm/S, right ICA PSV 294, EDV 40, right ECA PSV 167, right ICA/CCA ratio elevated 2.5. Impression: 50-69% category narrowing the right ICA by Doppler velocity criteria. Right ICA peak systolic velocity as well as peak systolic velocity in the ECA have increased since the prior study. Left carotid: Left common carotid artery shows mixed plaquing. There is moderate mixed plaquing in the bulb proximal ICA on the left side. Color flow and spectral Doppler interrogation demonstrate elevated systolic velocity in the ICA. Velocity chart left carotid: Left CCA PSV 119 cm/S, left ICA PSV 202, EDV 40, left ECA PSV 161 left ICA/cc ratio elevated 1.7. Impression: 50-79% category narrowing in the left ICA by Doppler velocity criteria. Velocities have increased on the left since prior study. Electronically Signed by Guilherme Rivera MD 08/04/2019 06:40 P
--- NOTE | 2019-08-04 18:51 | REP ---
Bilateral lower extremity arterial Doppler ultrasound: History: Bilateral lower extremity claudication. Findings: Ankle brachial indices could not be measured in either lower extremity due to noncompressible vessels. Severe atherosclerotic plaquing is present bilaterally. Abnormal monophasic waveforms are noted throughout the right lower extremity and distally in the left lower extremity arteries. There is evidence of a stenosis in the distal femoral artery on the right. Decrease in flow between the popliteal and the tibioperoneal trunk on the right. Decrease in flow between the distal superficial femoral and the left popliteal. Collateral vessels are observed in the distal thighs bilaterally. Velocity chart right lower extremity arteries:Right CARDIOLOGY CLINICAL NURSE SPECIALIST 49 cm/SProfunda 16Proximal SFA 110Mid SFA 127Distal SFA 50Popliteal 131Proximal RENATO 221Tibioperoneal trunk 18Proximal TAX INTERN 37Distal TAX INTERN 46Distal RENATO 48 Velocity chart left lower extremity arteries:Left CARDIOLOGY CLINICAL NURSE SPECIALIST 203 cm/SProfunda 210Proximal SFA 363Mid SFA 97Distal SFA 84Popliteal 31Proximal RENATO 96Tibioperoneal trunk 21Proximal TAX INTERN 21Distal TAX INTERN 36Distal RENATO 53 Electronically Signed by Guilherme Rivera MD 08/04/2019 08:00 P
== END ==
LOC: M RAD 12:24
PROVIDERS: ATTEND Physician Assistant
DX: I70.213 Atherosclerosis of native arteries of extremities with intermittent claudication, bilateral legs (principal); I65.23 Occlusion and stenosis of bilateral carotid arteries

== ENCOUNTER → 2019-09-16 | Outpatient (CLI) | payer MEDICARE, BC ==
[~2019-09-16] MED LIST changes: +ASPI81TA26 PO
--- NOTE | 2019-09-16 12:11 | REP ---
CHEST X-RAY: Two views. HISTORY: Preoperative evaluation of the left hip. Comparison chest x-ray May 26, 2019. FINDINGS: There is stable calcific pleural plaquing noted on the left. There is fairly extensive vascular calcification in the subclavian arteries bilaterally. The patient is status post cervical discectomy and fusion plating in the lower cervical spine. There are degenerative disc changes in the thoracic spine. The lungs are slightly hyperinflated but clear. The pleural angles are sharp. Heart size is normal. Pulmonary vasculature is not increased. IMPRESSION: Hyperinflation and vascular calcification. Calcific pleural plaquing noted on the left. No acute disease. Electronically Signed by Guilherme Rivera MD 09/16/2019 12:31 P
--- NOTE | 2019-09-16 20:36 | ECGEPIP ---
[facility] Test Date: 2019-09-16 Pat Name: MURTAZA DE JESUS Department: Room: - Gender: Male Emergency Medical Technician/Driver: KELLY : 1945 Requested By: Saniya Hubbard Order Number: [id number] Reading MD: Alexis Oliva Measurements Intervals [place] Rate: 55 P: 63 AL: 151 QRS: 69 QRSD: 89 T: 57 QT: 383 QTc: 368 Interpretive Statements SINUS BRADYCARDIA TALL T-WAVES, SUGGESTS HYPERKALEMIA SIMILAR TO 05/26/2019 Electronically Signed on 09-16-2019 20:36:14 EST by Alexis Oliva
== END ==
LOC: M RAD 10:40
PROVIDERS: ATTEND Orthopaedic Surgery
DX: Z01.818 Encounter for other preprocedural examination (principal); R00.1 Bradycardia, unspecified; E87.5 Hyperkalemia; M16.12 Unilateral primary osteoarthritis, left hip

== ENCOUNTER 2019-09-26 11:13 | Inpatient (IN) | payer MEDICARE, BC ==
--- NOTE | 2019-09-16 20:41 | HPE ---
DATE OF ADMISSION: ATTENDING PHYSICIAN: Dr. Stevie Tran CHIEF COMPLAINT: Left hip pain and stiffness. HISTORY: This is a pleasant, 74-year-old male patient with progressively worsening left hip pain and stiffness that has failed to improve with conservative treatment. He has elected for left hip total arthroplasty and has been consented for procedure with Dr. Tran. ALLERGIES: INDY INHIBITORS, reaction cough. CURRENT MEDICATIONS: - aspirin 81 mg one by mouth daily - atorvastatin - calcium 40 mg one by mouth daily at bedtime - Bioflex one by mouth daily - Ellipta one inhalation daily ACTIVE MEDICAL PROBLEMS: Anemia, benign prostatic hypertrophy, carotid artery stenosis, COPD, erectile dysfunction, intervertebral disc degeneration, lung neoplasm right nodule, peripheral vascular disease, hypercholesterolemia, seborrheic keratosis, subclavian artery stenosis. PAST SURGICAL HISTORY: Iliofemoral thromboendarterectomy, SUGAR COATING HAND of left common iliac artery, right total hip replacement, knee arthroscopy, C3 and C4 cervical fusion, laminectomy L5-S1, decompression of median nerve left wrist. SOCIAL HISTORY: Denies smoking, occasionally uses alcohol. FAMILY HISTORY: Father pneumonia, mother natural causes. REVIEW OF SYSTEMS: Denies fever, chills, chest pain, shortness of breath, nausea, vomiting, diarrhea. Reports left hip pain and stiffness with weightbearing activities. Denies any recent upper respiratory or urinary tract infection symptoms. PHYSICAL EXAMINATION: Vital signs: Height 74 inches, weight 187.6 pounds, temperature 97.5 degrees, blood pressure 116/60, pulse 63, respirations 17. He is normocephalic, atraumatic. Neck is supple and nontender with no lymphadenopathy or JVD. Lungs are clear to auscultation bilaterally. S1 and S2 were auscultated with no murmurs, rubs, gallops. Abdomen soft, nontender. The left lower extremity is well perfused. Left hip shows intact skin with no overlying rashes or erythema. EKG with normal sinus rhythm within normal limits. Chest x-ray unavailable for review. Previous chest x-ray did show a spot in the right lobe of the lung that is currently followed by Dr. Feldman with every [address] scans and is stable in nature. LABORATORY DATA: White count 8.1, red count 4.52, hemoglobin 13.3, hematocrit 40.8, ESR 14, BUN 15, creatinine 1.2, PT 10.2, INR 1. Medical optimization by Dr. Clancy was reviewed today on chart. ASSESSMENT: Symptomatic left hip degenerative changes. PLAN: Consented for left total hip arthroplasty with Dr. Tran pending chest x-ray.
[2019-09-26] VITALS (7 sets, daily range): BP systolic 135; BP diastolic 62; O2SAT 93–98
[~2019-09-26] VITALS: Ht 188 cm; Wt 90.8 kg
[~2019-09-26 11:13] MED LIST changes: +ACETAMINOPHEN 500 MG TAB PO ONE; +LIDOCAINE 1% MDV 20ML VIAL SQ PRN; +LR 1,000 ML IV ONE; +ceFAZolin SOD 2 GM in IV 1 EA IV ONE
[2019-09-26] MEDS ORDERED: LACTATED RINGER'S 500 ML IV ONE (13:00)
[2019-09-26] MEDS ORDERED: ceFAZolin 1GM INJ (J0690 PER 500MG) As Ordered ONE (14:02)
[2019-09-26] MEDS ORDERED: EPINEPHrine INJ 1 MG/ML 1ML AMP As Ordered ONE (14:02)
[2019-09-26] MEDS ORDERED: fentaNYL 100 MCG/2 ML INJECTION (J3010) As Ordered ONE (14:43)
[2019-09-26] MEDS ORDERED: PROPOFOL 200 MG/20 ML VIAL As Ordered ONE (14:43)
[2019-09-26] MEDS ORDERED: LIDOCAINE 2% INJ 100 MG/5 ML SDV (FOR ANES.) As Ordered ONE (14:43)
[2019-09-26] MEDS ORDERED: ONDANSETRON 4MG/2ML VIAL (J2405) As Ordered ONE (14:43)
[2019-09-26] MEDS ORDERED: ePHEDrine SULFATE 25 MG/5 ML(5MG/ML) SYRINGE As Ordered ONE ×2 (14:43→15:02)
[2019-09-26] MEDS ORDERED: MIDAZOLAM INJ 2 MG/2 ML VIAL (J2250) As Ordered ONE (14:43)
[2019-09-26] MEDS ORDERED: PHENYLephrine HCL 500 MCG/5 ML (100MCG/ML) SYRINGE (J2370) As Ordered ONE (14:46)
[2019-09-26] MEDS ORDERED: PHENYLEPHRINE INJ 10MG/ML VIAL (J2370) As Ordered ONE (15:06)
[2019-09-26] MEDS ORDERED: TRANEXAMIC ACID 100 MG/ML 10ML VIAL As Ordered ONE (15:30)
[2019-09-26] MEDS ORDERED: LR 1,000 ML IV SCH ×2 (17:15→20:15)
[2019-09-26] MEDS ORDERED: ALBUTEROL 90 MCG/ACT 8GM HFA INHALER INH PRN (17:15)
[2019-09-26] MEDS ORDERED: CALCIUM CHLORIDE 10% 1 GM/10 ML SYR IV SCH (17:15)
[2019-09-26] MEDS ORDERED: ONDANSETRON 4MG/2ML VIAL (J2405) IV PRN (17:15)
[2019-09-26] MEDS ORDERED: LR 500 ML IV SCH ×2 (17:15→18:15)
[2019-09-26] MEDS ORDERED: HYDROMORPHONE HCL 0.5 MG/ 0.5 ML SYRINGE (J1170 PER 1) IV PRN ×3 (17:15→17:30)
[2019-09-26] MEDS ORDERED: fentaNYL 100 MCG/2 ML INJECTION (J3010) IV PRN (17:15)
[2019-09-26] MEDS ORDERED: PERCOCET 5MG/325MG TAB PO PRN (17:15)
[2019-09-26] MEDS ORDERED: PHENYLEPHRINE INJ 10MG/ML VIAL (J2370) IV SCH (17:15)
[2019-09-26] MEDS ORDERED: FLEET ENEMA PR PRN (17:30)
[2019-09-26] MEDS ORDERED: ACETAMINOPHEN TAB 650MG DOSE (2X325MG) PO PRN (17:30)
--- NOTE | 2019-09-26 17:52 | REP ---
LEFT HIP PORTABLE AP LATERAL: 09/26/2019. Clinical history: Postop from left total hip arthroplasty. Findings. No prior studies. Skin francis are noted peripheral to the greater trochanter. A left total hip arthroplasty is noted with the two components well-aligned in relationship to the point hope ira bone and each other on both the AP and cross-table lateral views. A wall stent is seen over the left external and internal iliac with heavy vascular calcifications in the distal external iliac and common femoral arteries. Electronically Signed by Hardik Cooper MD 09/26/2019 08:02 P
--- NOTE | 2019-09-26 17:55 | CR.PDOC ---
General Date of Consultation: Sep 26, 2019 Consultation REASON FOR CONSULTATION/CHIEF COMPLAINT: evaluation after orthopedic surgery HISTORY OF PRESENT ILLNESS: Patient is 74-year-old male anemia, benign prostatic hypertrophy, carotid artery stenosis, COPD presented to the hospital for surgical replacement of the left hip. After procedure was done patient developed hypotension with blood pressure around 80/60, he received IV fluid bolus, phenylephrine started IV. When I saw patient and his blood pressure was around 105/80, patient stated that he feels good, denied shortness of breath, palpitations, chest pain, abdominal pain, diarrhea or dysuria. HOME MEDICATIONS: Please see below. PAST MEDICAL HISTORY: Anemia, benign prostatic hypertrophy, carotid artery stenosis, COPD, erectile dysfunction, intervertebral disc degeneration, lung neoplasm right nodule, peripheral vascular disease, hypercholesterolemia, seborrheic keratosis, subclavian artery stenosis. PAST SURGICAL HISTORY: Iliofemoral thromboendarterectomy, SITE LEAD of left common iliac artery, right total hip replacement, knee arthroscopy, C3 and C4 cervical fusion, laminectomy L5-S1, decompression of median nerve left wrist. FAMILY HISTORY: Father pneumonia, mother natural causes. SOCIAL HISTORY: Denies smoking, occasionally uses alcohol. REVIEW OF SYSTEMS: 10 point review system is negative except listed above PHYSICAL EXAMINATION: VITAL SIGNS: Please see below. GENERAL APPEARANCE: Well-nourished, well-developed, not in apparent distress HEENT: Normocephalic, atraumatic. Mucous members moist and pink CARDIOVASCULAR: Regular rate and rhythm. No murmurs, rubs or gallops. Radial pulses are intact. There is no lower extremity edema LUNGS: Diminished lung sounds, ABDOMEN: Bowel sounds are hypoactive. Abdomen is soft and nontender. MUSCULOSKELETAL: Pulsation preserved in all 4 extremities NEUROLOGICAL: Cranial nerves II-12 are grossly intact. Speech is not dysarthric LABORATORY DATA: Please see below. ASSESSMENT/PLAN: Patient is 74-year-old male anemia, benign prostatic hypertrophy, carotid artery stenosis, COPD presented to the hospital for surgical replacement of the left hip. After procedure was done patient developed hypotension with blood pressure around 80/60, he received IV fluid bolus, phenylephrine started IV. When I saw patient and his blood pressure was around 105/80, patient stated that he feels good, denied shortness of breath, palpitations, chest pain, abdominal pain, diarrhea or dysuria. Hypotension s/p surgery telemetry continue IV fluid hold blood pressure medication for now Hyperlipidemia Continue statin COPD Not in acute exacerbation Status post left hip replacement Pain management Anticoagulation per orthopedic team Vital Signs/I&O Vital Signs Date Time Temp Pulse Resp B/P (MAP) Pulse Ox O2 Delivery O2 Flow Rate FiO2 09/26/19 17:15 68 16 96/66 (76) 97 Room Air 09/26/19 16:53 98.0 Allergies Coded Allergies: No Known Allergies (Verified , 09/11/19) Home Medications Scheduled Aspirin (Aspirin EC) 81 Mg Tablet.dr, 81 MG PO DAILY, #30 (Reported) Atorvastatin Calcium (Atorvastatin Calcium) 40 Mg Tab, 40 MG PO DAILY, (Reported) Fluticasone/Vilanterol (Breo Ellipta 100-25 Mcg INH) 1 Inh Inh, 1 PUFF INH DAILY, (Reported) Scheduled PRN Albuterol Sulfate (Ventolin Hfa) 108 Mcg/Act Aer, 108 MCG IN PRN PRN for WHEEZING, (Reported) PABLO AHMADI DO Sep 26, 2019 17:55
[2019-09-26] MEDS ORDERED: PERCOCET 5MG/325MG TAB As Ordered ONE (19:51)
[2019-09-26] MEDS: PERCOCET 5MG/325MG TAB PO PRN ×2 (19:54→20:39)
[2019-09-26] MEDS ORDERED: ePHEDrine SULFATE 25 MG/5 ML(5MG/ML) SYRINGE IV SCH (20:30)
[2019-09-26] MEDS ORDERED: GLYCOPYRROLATE INJ 0.2 MG/ML 2 ML VIAL IV SCH (20:30)
[2019-09-26] MEDS ORDERED: CALCIUM CHLORIDE 10% 1 GM/10 ML SYR ONE (20:35)
[2019-09-26] MEDS: LR 1,000 ML IV SCH (21:44)
[2019-09-26] MEDS: ceFAZolin SOD 2 GM in IV 1 EA IV SCH (22:13)
[2019-09-27] VITALS (8 sets, daily range): BP systolic 90–126; BP diastolic 56–90; O2SAT 88–98
[2019-09-27] MEDS ORDERED: GLYCOPYRROLATE INJ 0.2 MG/ML 2 ML VIAL ONE (00:53)
[2019-09-27] MEDS ORDERED: ePHEDrine SULFATE 25 MG/5 ML(5MG/ML) SYRINGE ONE (00:53)
[2019-09-27] MEDS ORDERED: VASOPRESSIN INJ 20 UNITS/ML VIAL ONE (00:53)
[2019-09-27] MEDS: LR 1,000 ML IV SCH (03:56)
[2019-09-27] MEDS: ceFAZolin SOD 2 GM in IV 1 EA IV SCH ×2 (03:57→09:45)
[2019-09-27] MEDS ORDERED: PERCOCET 5MG/325MG TAB PO PRN (06:30)
[2019-09-27] MEDS ORDERED: XARE10TA PO (07:26)
[2019-09-27] MEDS ORDERED: PERC5TAB12 PO (07:26)
[2019-09-27 07:32] LABS: HEMOGLOBIN 10.1 g/dl (13.5-17.5); MEAN CORPUSCULAR HEMOGLOBIN 29.5 pg (27.0-33.0); MEAN CORPUSCULAR HGB CONC 31.6 g/dl (32.0-36.5); MEAN CORPUSCULAR VOLUME 93.6 fl (80.0-96.0); PLATELET COUNT, AUTOMATED 157 10^3/uL (150-450); RED BLOOD COUNT 3.42 10^6/uL (4.30-6.10); WHITE BLOOD COUNT 11.8 10^3/uL (4.0-10.0)
[2019-09-27 07:53] LABS: BLOOD UREA NITROGEN 13 MG/DL (7-18); CALCIUM LEVEL 8.7 MG/DL (8.8-10.2); CARBON DIOXIDE LEVEL 28 MEQ/L (21-32); CHLORIDE LEVEL 102 MEQ/L (98-107); CREATININE FOR GFR 1.04 MG/DL (0.70-1.30); GLOMERULAR FILTRATION RATE > 60.0 (>42); GLUCOSE, FASTING 116 MG/DL (70-100); POTASSIUM SERUM 4.5 MEQ/L (3.5-5.1); SODIUM LEVEL 135 MEQ/L (136-145)
[2019-09-27] MEDS: MOM 30ML SUSPENSION UDC PO SCH ×2 (09:45→10:40)
[2019-09-27] MEDS: ATORVASTATIN 20 MG TAB PO SCH (09:46)
[2019-09-27] MEDS: MIRALAX *UNIT DOSE* 17GM PACKET PO SCH (09:47)
[2019-09-27] MEDS: PERCOCET 5MG/325MG TAB PO PRN ×2 (09:47→18:08)
[2019-09-27] MEDS: SENOKOT S TAB PO SCH ×3 (09:47→20:18)
--- NOTE | 2019-09-27 11:45 | IPNPDOC ---
Text Note Date of Service The patient was seen on 09/27/19. NOTE Subjective: No any acute events overnight. In the morning patient had episodes of hypotension with 90/60. Patient denies any fever, chills, nausea, vomiting, chest pain, palpitations diarrhea or dysuria Objective: Well-nourished, well-developed, not in apparent distress HEENT: Normocephalic, atraumatic. Mucous members moist and pink CARDIOVASCULAR: Regular rate and rhythm. No murmurs, rubs or gallops. Radial pulses are intact. There is no lower extremity edema LUNGS: . Diminished lung sounds, ABDOMEN: Bowel sounds are hypoactive. Abdomen is soft and nontender. MUSCULOSKELETAL: Range of motion is intact in all 4 extremities NEUROLOGICAL: Cranial nerves II-12 are grossly intact. Speech is not dysarthric Patient is 74-year-old male anemia, benign prostatic hypertrophy, carotid artery stenosis, COPD presented to the hospital for surgical replacement of the left hip. After procedure was done patient developed hypotension with blood pressure around 80/60, he received IV fluid bolus, phenylephrine started IV. Hypotension s/p surgery telemetry continue IV fluid Will check orthostatic vital signs hold any blood pressure medication for now Hyperlipidemia Continue statin COPD Not in acute exacerbation Status post left hip replacement Pain management Anticoagulation per orthopedic team VS,Wolfgang, I+O VS, Wolfgang, I+O Laboratory Tests 09/27/19 07:10 Vital Signs Date Time Temp Pulse Resp B/P (MAP) Pulse Ox O2 Delivery O2 Flow Rate FiO2 09/27/19 10:17 18 Room Air 09/27/19 08:00 98.3 65 90/58 (69) 96 09/27/19 04:00 4.0 I&O- Last 24 Hours up to 6 AM 09/27/19 06:00 Intake Total 3410 ml Output Total 2300 ml Balance 1110 ml PABLO AHMADI DO Sep 27, 2019 11:45
[2019-09-27] MEDS ORDERED: RIVAROXABAN 10 MG TAB (XARELTO) PO SCH (18:00)
[2019-09-28] MEDS: PERCOCET 5MG/325MG TAB PO PRN ×2 (02:33→09:30)
[2019-09-28 08:00] VITALS: BP 134/60
[2019-09-28] MEDS: MIRALAX *UNIT DOSE* 17GM PACKET PO SCH (09:30)
[2019-09-28] MEDS: ATORVASTATIN 20 MG TAB PO SCH (09:30)
[2019-09-28] MEDS: SENOKOT S TAB PO SCH (09:30)
[2019-09-28] MEDS: MOM 30ML SUSPENSION UDC PO SCH (09:30)
--- NOTE | 2019-09-29 08:16 | RO ---
DATE OF PROCEDURE: PREPROCEDURE DIAGNOSIS: Left hip degenerative arthritis. POSTPROCEDURE DIAGNOSIS: Left hip degenerative arthritis. PROCEDURE: Left total hip arthroplasty using a size 56 Gription cup with a 40 mm neutral liner, 40 mm head with a +5 neck length and a #8 Idabel stem. The prosthesis was made by [employer]. SURGEON: Dr. Saniya Tran. BILLING CLINICIAN: Ms. Lupe Savage PA-C. ANESTHESIA: Spinal. ESTIMATED BLOOD LOSS: 300 mL. SPECIMENS: Femoral head. COMPLICATIONS: None. DESCRIPTION OF PROCEDURE: Antibiotics given intravenously preoperatively. Then a successful spinal anesthetic was induced. She was placed in the lateral decubitus position with a [place] hip position, her down-leg well padded, especially peroneal nerve. Axillary role was utilized. The leg hip are was carefully prepped, draped in the usual sterile fashion. After an appropriate time-out, a longitudinal incision was made for a direct lateral approach to the hip. Bovie cautery was used to coagulate the crossing vessels down to the tensor fascia, which was then divided in line with the skin incision. Underlying this, it is noteworthy of severe chronic trochanteric bursitis with essentially an absence of abductor attachments on the anterior proximal aspect of the femur. We splint the gluteus medius at the anterior one-third, posterior two-third junction and dissected down through the gluteus minimus and anterior hip capsule and carefully dissected that remaining abductor muscles off the proximal femur as we actually rotated the hip. Eventually, we were able to dislocate it anteriorly and place his leg in the left bag. The starter reamer was placed in the piriformis fossa followed by the canal finding reamer and the lateralizing reamer. Then we eventually reamed up to a size 8. We broached up to a size eventually. This was done after we did the femoral neck osteotomy. Once that had been completed, we exposed the acetabulum and formed a complete labral excision 360 degrees. We then began reaming with the 47 mm reamer, advanced up to 1 mm increments to 55. A trial 56 fit very nicely. There was a few small cysts in the acetabulum, which were curetted. The real 56 Gription cup was then placed after copiously irrigating using the extramedullary alignment jig to estimate abduction and version. The neutral liner, 40 mm in diameter, was then placed and it was well-seated. We then exposed the proximal femur and I copiously irrigated out the canal and placed the #8 broach. Then we did trial reduction first with 1.5 neck length with the 40 mm ball. He had good stability with flexion, internal rotation and extension external rotation but there was a little bit of excess soft tissue telescoping. Thus I elected to implant a size +5. The trial was removed, we copiously irrigated the femoral canal. Then the real stem was placed without difficulty. Then we dried the trunion and placed the real #40 mm head with a +5 neck length. Then reduced the hip after irrigating once again. We then began to meticulously closing the abductors and repairing them back to their proximal femur as best we could using a series of interrupted #1 PDS sutures. We also closed the gluteus minimus and the anterior hip capsule back anatomically with interrupted #1 PDS sutures. Some tranexamic acid was irrigated into the wound to help with hemostasis. We then closed the tensor fascia back anatomically with a combination of #1 PDS sutures in the inferior apex. Then a running #1 single arm Stratafix used to close the remaining portion of the tensor fascia proximally. We irrigated between layers and closed the deep subdermal tissues with interrupted #2-0 PDS sutures, skin was closed with francis, covered by an Optifoam, dry sterile bulky dressing. He was then turned supine and then transferred to the recovery room in stable condition. There were no intraoperative complications. Ms. Lupe Savage was critical to the success of this difficult procedure by helping to manipulate the leg, help with appropriate soft tissue retraction, helped to close the wound. Helped to prepare the patient amongst many other tasks to allow me to perform the operating smoothly, efficiently and safely. ADDENDUM: 09/26/2019 at 1651 In the preop holding area, I did Doppler his dorsalis pedis and posterior tibial pulse. They were not palpable, but they were Dopplerable. His foot was well perfused. I did that just to document that he did have Dopplerable pulse before we did the surgery.
--- NOTE | 2019-09-30 12:45 | DSES ---
DATE OF ADMISSION: 09/26/2019 DATE OF DISCHARGE: 09/28/2019 ADMITTING DIAGNOSIS: Osteoarthritis left hip. OTHER DIAGNOSES: Anemia. Benign prostatic hypertrophy. Carotid artery stenosis. Chronic obstructive pulmonary disease (COPD). Erectile dysfunction. Lumbar degenerative disk disease. History of a lung neoplasm. Peripheral vascular disease. Elevated cholesterol. Subclavian artery stenosis. DISCHARGE DIAGNOSIS: Osteoarthritis left hip status post left total hip arthroplasty. OPERATION PERFORMED: Left total hip arthroplasty. HISTORY: This is a 74-year-old male patient with progressively worsening left hip pain and stiffness. He failed to improve with conservative management. He is admitted for elective hip replacement. HOSPITAL COURSE: The patient was admitted on day of surgery and underwent a left total hip arthroplasty which was uneventful. During the postoperative period in the recovery room did note hypotension with a blood pressure of 80/60. He received a bolus of IV fluids and a phenylephrine was given IV and the patient's symptoms improved. During that period of time he denied any shortness breath, cough, chest pain or difficulty breathing. The remainder of his hospital stay was uneventful. On day of discharge he was doing well, weightbearing as tolerated on his left lower extremity. He will use thromboembolic deterrent stockings (TEDS) for 30 days postoperative for deep vein thrombosis (DVT) prophylaxis. He will use Xarelto 10 mg per the protocol for DVT prophylaxis. He will use oral pain medications for pain control. He will resume his preoperative medications and diet. He was given instructions to include, but not limited to, wound monitoring and activity limitations. He will followup in our office in 10-14 days for surgical followup. Please refer to the medical record further details.
== END 2019-09-28 12:03 | disposition home or self-care (01) | DRG 470 ==
LOC: M OR 11:13 → M PCU 21:42
PROVIDERS: ADMIT Orthopaedic Surgery; ATTEND Orthopaedic Surgery
PROC: 0SRB02Z Replacement of Left Hip Joint with Metal on Polyethylene Synthetic Substitute, Open Approach (ICD-10-PCS; principal; 2019-09-26 14:45)
DX: M16.12 Unilateral primary osteoarthritis, left hip (principal); D64.9 Anemia, unspecified; N40.0 Benign prostatic hyperplasia without lower urinary tract symptoms; M70.62 Trochanteric bursitis, left hip; J44.9 Chronic obstructive pulmonary disease, unspecified; I95.89 Other hypotension; I10 Essential (primary) hypertension; E78.00 Pure hypercholesterolemia, unspecified; N52.9 Male erectile dysfunction, unspecified; I73.9 Peripheral vascular disease, unspecified; L82.1 Other seborrheic keratosis; Z96.641 Presence of right artificial hip joint; Z98.1 Arthrodesis status; Z79.82 Long term (current) use of aspirin; Z79.899 Other long term (current) drug therapy; Z87.891 Personal history of nicotine dependence

== ENCOUNTER → 2020-04-22 | Outpatient (CLI) | payer MEDICARE, BC ==
[~2020-04-22] MED LIST changes: -ACETAMINOPHEN 500 MG TAB PO ONE; -LIDOCAINE 1% MDV 20ML VIAL SQ PRN; -LR 1,000 ML IV ONE; -ceFAZolin SOD 2 GM in IV 1 EA IV ONE
--- NOTE | 2020-04-22 15:02 | REP ---
Clinical: Atherosclerotic disease . Technique: Kebede scale and color Doppler evaluation using linear high frequency transducer Comparison: 08/04/2019 Findings: Two-dimensional kebede scale and color images again demonstrate extensive bilateral mixed atheromatous plaquing. Bilateral arterial wave patterns are noted with elements of spectral broadening and increased velocities. No discrete occlusion identified. RIGHT (cm/s) LEFT (cm/s) ICA peak systolic velocity 228.0 123.2 ICA diastolic velocity 22.2 24.5 ECA peak systolic velocity 151.3 143.2 CCA peak systolic velocity 99.6 127.2 ICA/CCA ratio 2.29 0.97 Impression: 1. Narrowing through the right internal carotid artery approaching 70% range stenosis. Narrowing of the left internal carotid artery falls within the 50-69% range stenosis. 2. Velocities and findings suggest mild improvement as compared to prior examination and should be correlated clinically. Electronically Signed by Delmar Pacheco MD 04/22/2020 02:54 P
--- NOTE | 2020-04-22 15:11 | REP ---
Clinical: Symptoms related to atherosclerotic disease and intermittent claudication. Technique: Real time kebede scale and color Doppler evaluation of the bilateral lower extremity arterial vasculature using linear high frequency transducer. Comparison: 08/04/2019 Findings: Kebede scale and color images demonstrate extensive partially calcified atherosclerotic changes bilaterally. Right lower extremity demonstrates moderate stenosis through the mid superficial femoral artery and area of occlusion through the right popliteal artery with subsequent collateral revascularization. With the exception of biphasic wave pattern through the common femoral artery, the right lower extremity demonstrates monophasic wave pattern to the ankle. Left lower extremity demonstrates moderate stenosis through the proximal superficial femoral artery and demonstrates monophasic wave patterns from the popliteal artery to the ankle. Peak systolic velocities (cm/sec) RIGHT LEFT BRET 1.4 1.4 Common femoral artery 28.9 117.1 Profunda femoris 32.6 166.4 SFA (proximal) 143.3 105/263 SFA (mid) 120/257 58.9 SFA (distal) 197.3 29.9 Popliteal artery 73.5 34.2 RENATO (prox.) 52.0 23.4 Tibioperoneal trunk 18.9 23.0 PIERCING MACHINE OPERATOR (prox.) 38.4 53.7 PIERCING MACHINE OPERATOR (distal) 31.7 31.5 RENATO (distal) 45.3 41.4 Impression: Extensive atheromatous plaquing noted bilaterally with areas of moderate stenosis through the mid right superficial femoral artery and proximal left superficial femoral artery as well as focal area of occlusion through the right popliteal artery with subsequent revascularization by collateral vessels. Electronically Signed by Delmar Pacheco MD 04/22/2020 03:02 P
== END ==
LOC: M RAD 12:49
PROVIDERS: ATTEND Physician Assistant
DX: I65.23 Occlusion and stenosis of bilateral carotid arteries (principal); I70.213 Atherosclerosis of native arteries of extremities with intermittent claudication, bilateral legs

== ENCOUNTER → 2020-11-22 | Outpatient (CLI) | payer MEDICARE, BC ==
--- NOTE | 2020-11-22 15:39 | REP ---
INDICATION: CAROTID OCCLUSION/STENOSIS, ATHEROSCLEROSIS COMPARISON: 04/22/2020. TECHNIQUE: Real-time ultrasound evaluation and duplex Doppler interrogation of the extracranial carotid vasculature is performed. FINDINGS: Moderate calcific plaque is seen diffusely bilaterally. Elevated peak systolic velocity is seen in both internal carotid arteries suggesting bilateral stenosis in the range of 50-79%. The vertebral arteries could not be visualized. RIGHT LEFT Peak systolic velocity ICA 162.8 cm/s 130.0 cm/s End diastolic velocity ICA 21.3 cm/s 22.6 cm/s Peak systolic velocity CCA 82.5 cm/s 90.7cm/s Peak systolic velocity ECA 110.2 cm/s 143.1 cm/s ICA/CCA ratio 1.97 1.32 IMPRESSION: Moderate calcific plaque bilaterally. There are again findings suggesting bilateral internal carotid artery stenosis 50-79%. <Electronically signed by Obi Kebede > 11/22/20 [id number]
--- NOTE | 2020-11-22 15:45 | REP ---
INDICATION: CAROTID OCCLUSION/STENOSIS, ATHEROSCLEROSIS COMPARISON: 04/22/2020. TECHNIQUE: Real time kebede scale and Duplex Doppler evaluation of the bilateral lower extremity arterial vasculature using linear high frequency transducer. FINDINGS: Kebede scale and duplex doppler images demonstrate moderate diffuse calcific plaque bilaterally. BRET right 0.95 and left 0.88. The suspect stenosis of the proximal right superficial femoral artery with elevated peak systolic velocity at that location. There may also be stenosis of the left common femoral and proximal superficial femoral arteries with elevated velocities at those locations. On the right there are diffuse biphasic waveforms except for monophasic waveform in the profunda. On the left triphasic waveform is noted in the common femoral artery with biphasic waveforms through the superficial femoral and popliteal arteries. Monophasic waveforms are seen in the calf arteries. Peak systolic velocities (cm/sec) Common femoral artery: Right 106; Left 231 Profunda femoris: Right 20; Left 143 SFA (proximal): Right 243; Left 244 SFA (mid): Right 130; Left 51 SFA (distal): Right 121; Left 71 Popliteal artery: Right 63; Left 27 RENATO (prox.): Right 44; Left 15 Tibioperoneal trunk: Right 23; Left the 13 MATRIX BATH OPERATOR (prox.): Right 44; Left 13 MATRIX BATH OPERATOR (distal): Right 20; Left 16 RENATO (distal): Right 28; Left 15 IMPRESSION: Moderate diffuse calcific plaque. Elevated peak systolic velocities in the left common femoral artery and proximal superficial femoral arteries bilaterally suggesting possible stenosis at these locations. <Electronically signed by Obi Kebede > 11/22/20 [id number]
== END ==
LOC: M RAD 12:16
PROVIDERS: ATTEND Physician Assistant
DX: I65.23 Occlusion and stenosis of bilateral carotid arteries (principal); I70.213 Atherosclerosis of native arteries of extremities with intermittent claudication, bilateral legs

== ENCOUNTER → 2022-03-08 | Outpatient (CLI) | payer MEDICARE, BC | LOC: M RAD 12:05 | PROVIDERS: ATTEND Surgery Vascular Surgery | DX: I65.23 Occlusion and stenosis of bilateral carotid arteries (principal); R93.6 Abnormal findings on diagnostic imaging of limbs; I77.9 Disorder of arteries and arterioles, unspecified; I73.9 Peripheral vascular disease, unspecified ==

== ENCOUNTER → 2022-03-31 | Outpatient (CLI) | payer MEDICARE, BC ==
[~2022-03-31] MED LIST changes: +ISOVUE-370 76% 100ML VIAL As Ordered ONE
== END ==
LOC: M RAD 14:59
PROVIDERS: ATTEND Surgery Vascular Surgery
DX: I65.23 Occlusion and stenosis of bilateral carotid arteries (principal)
CPT/HCPCS: 70496; 70498; Q9967

== ENCOUNTER → 2022-08-17 | Outpatient (CLI) | payer MEDICARE, BC ==
[~2022-08-17] MED LIST changes: -ISOVUE-370 76% 100ML VIAL As Ordered ONE
== END ==
LOC: M PLARAD 10:55
PROVIDERS: ATTEND Orthopaedic Surgery
DX: M48.07 Spinal stenosis, lumbosacral region (principal)

== ENCOUNTER → 2022-09-21 | Outpatient (CLI) | payer MEDICARE, BC | LOC: M PLARAD 10:14 | PROVIDERS: ATTEND Orthopaedic Surgery | DX: R27.0 Ataxia, unspecified (principal) ==